=== PATIENT | female | born 1985 | race Caucasian/White ===

== ENCOUNTER 2020-01-06 07:23 | Emergency (ER) | payer OTHER ==
[~2020-01-06] VITALS: Ht 170.2 cm; Wt 63.5 kg
[2020-01-06] MEDS ORDERED: LAMICTAL150 M1 (07:47)
[2020-01-06] MEDS ORDERED: DIASTAT2.5 MG (07:48)
== END 2020-01-06 13:22 | disposition home or self-care (01) ==
LOC: ER 07:23
DX: G44.89 Other headache syndrome (principal); M75.02 Adhesive capsulitis of left shoulder; M75.01 Adhesive capsulitis of right shoulder; Z03.818 Encounter for observation for suspected exposure to other biological agents ruled out

== ENCOUNTER → 2025-07-17 | Emergency (ER) | payer OTHER ==
[~2025-07-17] VITALS: Ht 165.1 cm; Wt 65.3 kg
[~2025-07-17] MED LIST: 0.9 % SODIUM CHLORIDE 500 ML IV ONE; DIASTAT2.5 MG; KEPPRA750 MG PO; LAMICTAL150 M1; LAMICTAL200 M1 PO
[2025-07-17 15:03] LABS: BASO % 0.5 % (0.1-1.2); EOS # 0.14 (0.04-0.54); EOS % 1.6 % (0.7-7.0); LYMPH # 1.77 (1.18-3.74); LYMPH % 20.6 % (19.3-53.1); MEAN PLATELET VOLUME 12.00 fl (9.4-12.4); MONO # 0.62 (0.24-0.82); MONO % 7.2 % (4.7-12.5); NEUT # 6.01 (1.56-6.13); NEUT % 69.9 % (34.0-71.1); RED CELL DISTRIBUTION WIDTH 12.2 % (11.6-14.4)
[2025-07-17 15:25] LABS: INR 1.0
[2025-07-17 15:26] LABS: ALT/SGPT 41.0 U/L (12-78); AST/SGOT 20.0 U/L (15-37); BILIRUBIN TOTAL 0.29 mg/dL (0.3-1.2); BUN CREA RATIO 14.0 (7.0-25.0); CREATININE SERUM 0.69 mg/dL (0.55-1.02); GFR 94.23; GLOBULINA 3.8 G/DL (2.4-3.5); GLUCOSE FASTING 106.0 mg/dL (65-100); OSMOLALITY SERUM 284.0 MOSM/KG (275-295)
[2025-07-17 15:40] LABS: URINE APPEARANCE Cloudy; URINE BILIRRUBIN Negative (NEGATIVE); URINE BLOOD Trace; URINE COLOR Yellow; URINE GLUCOSE Negative (NEGATIVE); URINE KETONE Negative (NEGATIVE); URINE LEUKOCYTE Trace; URINE NITRATE Negative; URINE PROTEIN Negative (NEGATIVE); URINE UROBILINOGEN 0.2 E.U./dl
[2025-07-17 15:44] LABS: URINE BACTERIA 717.1 uL (0.0-1933); URINE EPITHELIAL CELLS 107.1 uL (0.0-38.8); URINE RBC 6.0 uL (0.0-20.8); URINE WBC 53.6 uL (0.0-23.2)
[2025-07-17 15:49] LABS: URINE CAST 0.00 uL (0.0-1.40)
== END | disposition home or self-care (01) ==
LOC: ER 11:09
PROVIDERS: General Practice
DX: S09.8XXA Other specified injuries of head, initial encounter (principal); W18.39XA Other fall on same level, initial encounter; Y93.89 Activity, other specified; Y92.018 Other place in single-family (private) house as the place of occurrence of the external cause; M54.50 Low back pain, unspecified; G80.8 Other cerebral palsy; G40.802 Other epilepsy, not intractable, without status epilepticus
CPT/HCPCS: 36415; 70450; 72070; 72125; 73030; 73521; 96365; 96366; 99284; J7042